=== PATIENT | male | born 1980 | race Caucasian/White ===

== ENCOUNTER → 2020-10-06 | Outpatient (CLI) | payer OTHER ==
--- NOTE | 2020-10-06 16:54 | US ---
EXAMINATION TYPE: US scrotum with doppler. Grayscale and color Doppler Duplex imaging performed of t he scrotum. DATE OF EXAM: 10/06/2020 COMPARISON: NONE CLINICAL HISTORY: N45.2 Orchitis. Left chronic testicular pain. No injury. No swelling. EXAM MEASUREMENTS: TESTICLES: Right Testicle: 4.0 x 4.0 x 2.5 cm Left Testicle: 4.5 x 4.3 x 2.6 cm EPIDIDYMIS HEAD: Right Epididymis: 1.2 x 1.1 x 0.8 cm Left Epididymis: 1.3 x 1.0 x 1.1 cm Doppler performed to assess for testicular vascularity; good bilateral color flow and waveforms are s een. There is no evidence of testicular torsion. Presence of hydroceles: bilateral Presence of varicoceles: no Left epididymal head cyst = 0.3 x 0.2 x 0.2 cm. IMPRESSION: Small hydroceles bilaterally. Small left epididymal head cyst. Otherwise unremarkable study.
== END | disposition home or self-care (01) ==
LOC: RADUSWWP 16:16
PROVIDERS: ATTEND Physician Assistant Medical
DX: N43.3 Hydrocele, unspecified (principal); N50.3 Cyst of epididymis; Z88.8 Allergy status to other drugs, medicaments and biological substances; Z91.030 Bee allergy status
CPT/HCPCS: 76870; 93975

== ENCOUNTER 2023-02-03 14:47 | Emergency (ER) | payer OTHER ==
[2023-02-03 14:51] LABS: Glucose,Whole Blood 92 mg/dL (70-110)
[2023-02-03] MEDS ORDERED: ONDANSETRON 4 MG/2 ML VIAL IVP STA (14:58)
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
[2023-02-03 15:04] LABS: Basophils % (A) 0 %; Eosinophils # (A) 0.2 k/uL (0-0.7); Eosinophils % (A) 2 %; Lymphocytes # (A) 1.9 k/uL (1.0-4.8); Lymphocytes % (A) 18 %; MCH 32.6 pg (25.0-35.0); MCHC 34.2 g/dL (31.0-37.0); MCV 95.4 fL (80.0-100.0); Mean Platelet Volume 7.8; Monocytes # (A) 0.6 k/uL (0-1.0); Monocytes % (A) 5 %; Neutrophils % (A) 75 %; Platelet Count 192 k/uL (150-450); RBC 4.29 m/uL (4.30-5.90); RDW 12.6 % (11.5-15.5); WBC 10.8 k/uL (3.8-10.6)
[2023-02-03 15:13] LABS: Prothrombin Time 10.3 sec (9.0-12.0)
[2023-02-03 15:19] LABS: ALT 27 U/L (4-49); AST 31 U/L (17-59); African American GFR (CKD) >90 (>60 ml/min/1.73 sqM); Albumin 3.8 g/dL (3.5-5.0); Alcohol 10 mg/dL; Alkaline Phosphatase 88 U/L (38-126); Anion Gap 4 mmol/L; Blood Urea Nitrogen 10 mg/dL (9-20); Calcium 8.3 mg/dL (8.4-10.2); Carbon Dioxide 23 mmol/L (22-30); Chloride 109 mmol/L (98-107); Glucose 97 mg/dL (74-99); Non-African American GFR(CKD) >90 (>60 ml/min/1.73 sqM); Sodium 136 mmol/L (137-145); Total Bilirubin 0.5 mg/dL (0.2-1.3); Total Protein 6.3 g/dL (6.3-8.2)
[2023-02-03 15:21] LABS: Potassium 4.2 mmol/L (3.5-5.1)
[2023-02-03 15:24] LABS: Partial Thromboplastin Time 19.8 sec (22.0-30.0)
[2023-02-03 15:26] VITALS: TEMP 98.4
[2023-02-03] MEDS ORDERED: HYDROmorphone 1 MG/ML 1 ML SYRINGE IVP STA (15:29)
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
[2023-02-03 17:31] VITALS: BP 123/74; PULSE 92; RESP 18
== END 2023-02-03 17:34 | disposition home or self-care (01) ==
LOC: EC 14:47
DX: S50.312A Abrasion of left elbow, initial encounter (principal); T14.8XXA Other injury of unspecified body region, initial encounter; V29.99XA Rider (driver) (passenger) of other motorcycle injured in unspecified traffic accident, initial encounter; Y92.410 Unspecified street and highway as the place of occurrence of the external cause
CPT/HCPCS: 36415; 93005; 86900; 86901; 80053; 84484; 85025; 85610; 85730; 86850; 80320; 72170; 73030; 73552; 71045; 72125; 70486; 70450; 99285; 96374; 96375; J2405; J1170